=== PATIENT | female | born 1970 | race Caucasian/White ===

== ENCOUNTER → 2020-04-10 15:19 | Outpatient (CLI) | payer BC, SELFPAY ==
--- NOTE | ~2020-04-10 | US_ITS ---
EXAMINATION: US transvaginal DATE: 04/10/2020 15:43 INDICATION: Menorrhagia Comparison:No prior studies for comparison. TECHNIQUE: Multiple transabdominal and endovaginal sonographic images of the pelvis performed. FINDINGS: The uterus measures 8.5 x 5.1 x 5.9 cm. The endometrial complex measures 8 mm. The right ovary measures 3.5 x 2 x 2.7 cm and the left ovary measures 2.7 x 1.4 x 3 cm. There are sm all follicles in each ovary. There is no free fluid in the pelvis. There are no abnormal masses seen on either side. IMPRESSION: 1. Unremarkable pelvic ultrasound. Reviewed, dictated and finalized at location B.
== END ==
PROVIDERS: PCP Family Medicine Sports Medicine; Visit Provider Obstetrics & Gynecology Gynecology
DX: N92.0 Excessive and frequent menstruation with regular cycle (principal)
CPT/HCPCS: 76830

== ENCOUNTER → 2020-05-04 17:53 | Outpatient (CLI) | payer BC, SELFPAY ==
--- NOTE | ~2020-05-04 | MM_ITS ---
EXAMINATION: MM screening contra [facility] BI w nehemias HISTORY: Screening mammogram TECHNIQUE: Craniocaudal and mediolateral oblique 3-D tomosynthesis images were obtained and synthetic 2-D images were generated. CAD analysis was submitted and interpreted. COMPARISON: 12/25/2018, 12/23/2017, 12/09/2016, 07/08/2008 BREAST PARENCHYMAL COMPOSITION: The breasts are heterogeneously dense, which may obscure small masses . FINDINGS: There is no evidence of suspicious mass, calcification, or architectural distortion to sugg est malignancy in either breast. There has been no suspicious interval change. IMPRESSION: 1. No mammographic evidence of malignancy. 2. Recommend routine screening mammography in one year. BI-RADS Category 1: Negative Reviewed, dictated and finalized at location A. UP MAN
== END ==
PROVIDERS: PCP Family Medicine Sports Medicine; Visit Provider Nurse Practitioner
DX: Z12.31 Encounter for screening mammogram for malignant neoplasm of breast (principal)
CPT/HCPCS: 77063; 77067

== ENCOUNTER 2020-06-16 10:44 | Emergency (ER) | payer BC, SELFPAY ==
[2020-06-16 11:08] VITALS: BP 113/76; PULSE 120; RESP 14; TEMP 37; O2SAT 99
[2020-06-16] MEDS: methylPREDNISolone SOD SUCC 125 MG VIAL IV PUSH (12:13)
[2020-06-16] MEDS: diphenhydrAMINE HCl INJ 50 MG/ML VIAL IV PUSH (12:14)
[2020-06-16] MEDS: EPINEPHrine HCL INJ 1 MG/ML AMPUL 0.3 MG IM (12:14)
--- NOTE | 2020-06-16 12:28 | ED.ALLEREA ---
HPI - Allergic Reaction General Chief complaint: Allergic Reaction Stated complaint: hives, facial swelling Time Seen by Provider: 06/16/20 11:41 Source: patient Mode of arrival: ambulatory Limitations: no limitations History of Present Illness HPI narrative: This patient is a 50 year old female who presents for evaluation of hives. She states she developed hives after taking 1 pill of pyridum on Friday. Yesterday morning at 3 am she developed itching and later she developed hives. She has been taking benadryl pills every 6 hours . This is helping her itching but she has a rash to face, arms , body and legs. She denies chest pain, sob or throat itching. She is not aware of any allergies previously. She finished antibiotics a few days before her hives started. Related Data Home Medications Medication Instructions Recorded Confirmed alprazolam 06/12/19 terbinafine HCl mg 06/12/19 Allergies Allergy/AdvReac Type Severity Reaction Status Date / Time No Known Allergies Allergy Unverified 06/12/19 14:44 Review of Systems Review of Systems: All systems reviewed & are unremarkable except as noted in HPI and below PMFSH Past Medical History Medical History (Updated 06/16/20 @ 13:18 by Amanda Tucker MD) Anxiety Toenail fungus Social History Social History Smoking status: Never smoker Exam Const: General: no acute distress and alert Orientation/consciousness: patient oriented x3 Eyes: Pupils: Equal, round and reactive pupils present EOM: EOMs intact bilaterally Resp: Effort & Inspection: normal respiratory effort and no retractions Auscultation: clear to auscultation bilaterally Cardio: Rate: regular rate Rhythm: regular rhythm Heart sounds: no murmurs Skin: Rashes: rashes noted (urticaria periorbital, arms, legs, feet) Neuro: General: patient oriented x3 and moves all extremities Course Reevaluation(s) Reevaluation #1: PAtient's rash has almost completely resolved. Patient is tearful due to a family remember recently dying. I discussed discharge plan . she denies any additional questions or concerns. Date: 06/16/20 Time: 13:15 Vital Signs Vital signs: Vital Signs Temperature 98.6 F 06/16/20 11:08 Pulse Rate 120 H 06/16/20 11:08 Respiratory Rate 14 06/16/20 11:08 Blood Pressure 113/76 06/16/20 11:08 Pulse Oximetry 99 06/16/20 11:08 Temperature 98.6 F 06/16/20 11:08 Pulse Rate 120 H 06/16/20 11:08 Respiratory Rate 14 06/16/20 11:08 Blood Pressure 113/76 06/16/20 11:08 Pulse Oximetry 99 06/16/20 11:08 Discharge Plan Discharge Clinical Impression: Urticaria Patient Disposition: Home, Self-Care Condition: Stable Instructions: Urticaria (ED), Acute Rash (ED) Additional Instructions: Today you were evaluated for rash likely due to a medication. Take steroids, pepcid and antihistamines. REturn if you develop difficulty breathing, chest pain, lip swelling. You can continue to take benadryl or something like zyrtec. Call your primary care provider on Friday if you have no resolution. Prescriptions: New prednisone 10 mg Tablets,Dose Pack See Taper mg PO DAILY 12 Days Qty: 42 RF: 0 famotidine [Pepcid] 20 mg tablet 20 mg PO BID Qty: 14 RF: 0 No Action terbinafine HCl 250 mg tablet RF: 0 alprazolam 0.25 mg tablet RF: 0 sulfamethoxazole-trimethoprim [Bactrim DS] 800-160 mg tablet 1 tablet PO BID 3 Days Qty: 6 RF: 0 Follow-up/Referrals: Martir,Sancho Waterman MD [Primary Care Provider] -
== END 2020-06-16 13:33 | disposition home or self-care (01) ==
PROVIDERS: Emergency Provider General Practice; PCP Family Medicine Sports Medicine
DX: L50.9 Urticaria, unspecified (principal); F41.9 Anxiety disorder, unspecified
CPT/HCPCS: 96372; 96374; 96375; 99284; J0171; J1200; J2930

== ENCOUNTER → 2021-06-26 13:23 | Outpatient (CLI) | payer BC, SELFPAY ==
--- NOTE | ~2021-06-26 | MM_ITS ---
EXAMINATION: MM screening [facility] BI w nehemias HISTORY: Screening mammogram TECHNIQUE: Craniocaudal and mediolateral oblique 3-D tomosynthesis images were obtained and synthetic 2-D images were generated. CAD analysis was submitted and interpreted. COMPARISON: 05/04/2020, 12/25/2018, 12/23/2017 BREAST PARENCHYMAL COMPOSITION: The breasts are heterogeneously dense, which may obscure small masses . FINDINGS: There is no evidence of suspicious mass, calcification, or architectural distortion to sugg est malignancy in either breast. There has been no suspicious interval change. IMPRESSION: 1. No mammographic evidence of malignancy. 2. Recommend routine screening mammography in one year. BI-RADS Category 1: Negative Reviewed, dictated and finalized at location A. ORATE ASSOCIATE
== END ==
PROVIDERS: PCP Family Medicine Sports Medicine; Visit Provider Obstetrics & Gynecology Gynecology
DX: Z12.31 Encounter for screening mammogram for malignant neoplasm of breast (principal)
CPT/HCPCS: 77063; 77067

== ENCOUNTER → 2022-07-30 16:06 | Outpatient (CLI) | payer OTHER, SELFPAY ==
--- NOTE | ~2022-07-30 | MM_ITS ---
EXAMINATION: MM screening [facility] BI w nehemias HISTORY: Screening mammogram TECHNIQUE: Craniocaudal and mediolateral oblique 3-D tomosynthesis images were obtained and synthetic 2-D images were generated. CAD analysis was submitted and interpreted. COMPARISON: 06/2021, 05/04/2020, 12/25/2018 bilateral screening mammogram examinations BREAST PARENCHYMAL COMPOSITION: The breasts are heterogeneously dense, which may obscure small masses . FINDINGS: There is no evidence of suspicious mass, calcification, or architectural distortion to sugg est malignancy in either breast. There has been no suspicious interval change. IMPRESSION: 1. No mammographic evidence of malignancy. 2. Recommend routine screening mammography in one year. BI-RADS Category 1: Negative Reviewed, dictated and finalized at location A. O FLOATER
== END ==
PROVIDERS: PCP Family Medicine Sports Medicine; Visit Provider Nurse Practitioner
DX: Z12.31 Encounter for screening mammogram for malignant neoplasm of breast (principal)
CPT/HCPCS: 77063; 77067

== ENCOUNTER 2023-06-01 10:39 | Emergency (ER) | payer OTHER, SELFPAY ==
--- NOTE | 2023-06-01 10:43 | ED.GENADULT ---
HPI - General Adult General Stated complaint: sorethroat Time Seen by Provider: 06/01/23 10:43 Source: patient Mode of arrival: ambulatory Limitations: no limitations History of Present Illness HPI narrative: 53-year-old female patient presents to the [facility] with complaints of a sore throat that started about 2 days ago. 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 Patient states she has been taking Tylenol and ibuprofen for the pain. Unsure she has been having any fevers but last night she did have some chills. Patient states slight congestion denies any coughing, nausea, vomiting or diarrhea. Denies any headaches. Related Data Home Medications Medication Instructions Recorded Confirmed alprazolam 0.25 mg tablet 06/12/19 terbinafine HCl 250 mg tablet mg 06/12/19 Allergies Allergy/AdvReac Type Severity Reaction Status Date / Time No Known Allergies Allergy Unverified 06/12/19 14:44 Review of Systems Review of Systems: CONSTITUTIONAL: Denies fever, Positive chills, denies sweats. EYES: Denies visual changes, redness, or discharge. ENT: positive rhinorrhea, congestion, positive sore throat, denies otalgia. CARDIOVASCULAR: Denies chest pain, palpitations, or edema. RESPIRATORY: Denies cough or dyspnea. GASTROINTESTINAL: Denies abdominal pain, nausea, vomiting, or diarrhea. GENITOURINARY: Denies dysuria or hematuria. SKIN: Denies rash or itching. MUSCULOSKELETAL: Denies back pain, joint pain, or myalgia. NEUROLOGIC: Denies headache, numbness, or weakness. PSYCHIATRIC: Denies anxiety or depression. PMFSH Past Medical History Medical History (Updated 06/01/23 @ 11:23 by MAG Jaeger) Anxiety Toenail fungus Social History Social History Smoking status: Never smoker Comments At the time of my signature I agree with nursing past medical history, surgical, social, and family history. There is no relevant family history pertinent to the presenting complaint. Exam Narrative: GENERAL: Well-appearing, well-nourished, and in no acute distress. HEAD: Normocephalic, atraumatic. EYES: PERRLA and EOMI. ENT: Nares with erythema edema noted bilaterally, no rhinorrhea or epistaxis. Mucous membranes moist. posterior pharynx with erythema, 1+ tonsillar enlargement. no erythema or foreign bodies the canal to bilateral TMs. NECK: Supple. No lymphadenopathy CHEST: Clear to auscultation. No respiratory distress. HEART: Regular rate and rhythm. No murmur heard. Normal peripheral pulses. ABDOMEN: Soft, nontender, nondistended, normal active bowel sounds. EXTREMITIES: Normal range of motion. No edema. SKIN: Warm, dry, no rash. NEURO: No focal deficits. Alert and oriented x3. Course Course Level of Care: Express Care Visit Vital Signs Vital signs: Vital Signs Temperature 36.5 C 06/01/23 10:52 Pulse Rate 92 06/01/23 10:52 Respiratory Rate 18 06/01/23 10:52 Blood Pressure 116/67 06/01/23 10:52 Pulse Oximetry 100 06/01/23 10:52 Oxygen Delivery Room Air 06/01/23 10:52 Temperature 36.5 C 06/01/23 10:52 Pulse Rate 92 06/01/23 10:52 Respiratory Rate 18 06/01/23 10:52 Blood Pressure 116/67 06/01/23 10:52 Pulse Oximetry 100 06/01/23 10:52 Oxygen Delivery Room Air 06/01/23 10:52 Vital signs reviewed Medical Decision Making MDM Narrative Medical decision making narrative: Plan of care for patient is to swab her today for strep. I will reassess her once this has resulted Differential Diagnosis Differential Diagnosis: differential diagnosis: Viral pharyngitis, pharyngitis, group A strep, infectious mononucleosis, gonococcal pharyngitis, exudative pharyngitis, oral candidiasis. Chronic allergies, postnasal drip, GERD, abscess formation, but glottitis, retropharyngeal abscess formation, or airway obstruction. Vital Signs Vital Signs: Vital S
[2023-06-01 10:52] VITALS: BP 116/67; PULSE 92; RESP 18; TEMP 36.5; O2SAT 100
== END 2023-06-01 11:30 | disposition home or self-care (01) ==
PROVIDERS: Emergency Provider Nurse Practitioner Family; PCP Family Medicine Sports Medicine
DX: J02.0 Streptococcal pharyngitis (principal); F41.9 Anxiety disorder, unspecified
CPT/HCPCS: 87880; 99213; G0463

== ENCOUNTER 2023-09-24 16:15 | Outpatient (CLI) | payer OTHER, SELFPAY ==
--- NOTE | ~2023-09-24 | MM_ITS ---
EXAMINATION: MM screening [facility] BI w nehemias HISTORY: Screening TECHNIQUE: Craniocaudal and mediolateral oblique 3-D tomosynthesis images were obtained and synthetic 2-D images were generated. CAD analysis was submitted and interpreted. COMPARISON: Comparison to multiple prior studies sequentially, with oldest reviewed study dated 09/2021. BREAST PARENCHYMAL COMPOSITION: Not dense: There are scattered areas of fibroglandular density. FINDINGS: There are developing bilateral breast asymmetries centered in the upper outer quadrant of b oth breasts. IMPRESSION: 1. Developing bilateral breast asymmetries. 2. Additional mammographic views and possible breast ultrasound are recommended. BI-RADS Category 0: Incomplete: Needs additional imaging evaluation. Reviewed, dictated and finalized at location A. IMPRESSION: 1. Developing bilateral breast asymmetries. 2. Additional mammographic views and possible breast ultrasound are recommended . BI-RADS Category 0: Incomplete: Needs additional imaging evaluation.
== END 2023-09-24 16:16 ==
LOC: MICIMG 16:16
PROVIDERS: PCP Nurse Practitioner; Visit Provider Nurse Practitioner
DX: Z12.31 Encounter for screening mammogram for malignant neoplasm of breast (principal); R92.8 Other abnormal and inconclusive findings on diagnostic imaging of breast
CPT/HCPCS: 77063; 77067

== ENCOUNTER 2023-11-03 14:06 | Outpatient (CLI) | payer OTHER, SELFPAY ==
--- NOTE | ~2023-11-03 | MMUS_ITS ---
EXAMINATION: MM diagnostic [facility] BI w nehemias, US breast BI limited HISTORY: Developing bilateral mammographic asymmetry is reported in the upper outer quadrant of each breast on September 24, 2023 screening mammogram TECHNIQUE: Additional 3-D tomosynthesis images of both breasts were performed and synthetic 2-D image s were generated. CAD analysis was submitted and interpreted. High resolution bilateral upper outer q uadrant breast ultrasound was performed. COMPARISON: September 24, 2023, July 30, 2022, June 26, 2021 by lateral screening mammogram examinati ons FINDINGS: MAMMOGRAPHIC FINDINGS: 3.8 x 6 mm low density circumscribed opacity with suggestion of a radiolucent hilus is noted in the u pper outer right breast, likely a benign lymph node. This is present on prior examinations. No suspicious mass, architectural distortion, malignant calcification, skin thickening or retraction is detected in the upper outer quadrant of .either breast. ULTRASOUND: No suspicious solid mass or suspicious shadowing of either breast is detected. Right breast: 11:00 7 cm from nipple: 2.6 x 6.1 mm benign-appearing lymph node. 11:00 5 cm from nipple: 3 x 6 mm benign-appearing lymph node Right breast: 12:00 4 cm from nipple: 4.6 x 5.8 x 5.4 mm circumscribed hypoechoic lesion with through transmission posterior enhancement, no internal vascularity, likely a benign cyst 2:00 4 cm from nipple: Similar 2.7 x 2.9 x 3.5 mm circumscribed sonolucency with through transmission , no internal vascularity, likely benign IMPRESSION: 1. Benign findings 2. Routine annual mammographic screening is recommended BI-RADS Category 2: Benign finding(s). Reviewed, dictated and finalized at location A. IMPRESSION: 1. Benign findings 2. Routine annual mammographic screening is recommended BI-RADS Category 2: Benign finding(s).
== END 2023-11-03 14:07 ==
LOC: MICIMG 14:09
PROVIDERS: PCP Obstetrics & Gynecology Gynecology; Visit Provider Obstetrics & Gynecology Gynecology
DX: R92.8 Other abnormal and inconclusive findings on diagnostic imaging of breast (principal)
CPT/HCPCS: 76642; 77062; 77066; G0279

== ENCOUNTER 2024-04-18 09:25 | Emergency (ER) | payer OTHER, SELFPAY ==
--- NOTE | ~2024-04-18 | XR_ITS ---
EXAMINATION: XR chest 2V DATE: 04/18/2024 10:01 INDICATION: Cough. Chest congestion. TECHNIQUE: Frontal and lateral views of the chest were obtained. COMPARISON: None. FINDINGS: There is no pneumonia, pleural effusion, or pneumothorax. The heart size is normal. IMPRESSION: 1. No acute cardiopulmonary disease. Reviewed, dictated and finalized at location A.
[2024-04-18 09:33] VITALS: BP 128/72; PULSE 82; RESP 18; TEMP 36.3; O2SAT 100
[2024-04-18 09:36] VITALS: BP 128/72; PULSE 82; RESP 18; TEMP 36.3; O2SAT 100
--- NOTE | 2024-04-18 09:44 | ED_ITS ---
HPI - URI/Sore Throat General Chief Complaint: Upper Respiratory Infection Stated Complaint: sinus pressure Time Seen by Provider: 04/18/24 09:44 Source: patient Mode of arrival: ambulatory Limitations: no limitations History of Present Illness HPI Narrative: 54 yo F presents with cough, nasal congestion, fatigue for 4 days. Afebrile. Symptoms started with hoarse voice. No sore throat. Denies CP/SOB. pt teaches p reschool. Has had pneumonia exposure. All systems reviewed and negative except as noted above. Related Data Allergies Allergy/AdvReac Type Severity Reaction Status Date / Time nitrofurantoin Allergy Rash Verified 04/18/24 09:36 [From Macrobid] phenazopyridine Allergy Rash Verified 04/18/24 09:36 [From Pyridium] Review of Systems Review of Systems: CONSTITUTIONAL: Denies fever, chills, or sweats. reports fatigue. EYES: Denies visual changes, redness, or discharge. ENT: Reports rhinorrhea, congestion. Denies sore throat, or otalgia. CARDIOVASCULAR: Denies chest pain, palpitations, or edema. RESPIRATORY: reports cough. Denies dyspnea. GASTROINTESTINAL: Denies abdominal pain, nausea, vomiting, or diarrhea. GENITOURINARY: Denies dysuria or hematuria. SKIN: Denies rash or itching. MUSCULOSKELETAL: Denies back pain, joint pain, or myalgia. NEUROLOGIC: Denies headache, numbness, or weakness. PSYCHIATRIC: Denies anxiety or depression. All other systems reviewed are negative, except as documented in HPI. [facility] Past Medical History Medical History (Updated 04/18/24 @ 10:26 by Alejandrina Toussaint NP) Anxiety Toenail fungus Social History Social History Smoking status: Never smoker Comments At time of signature, agree with nursing past medical, surgical, social and family history. There is no relevant family history pertinent to the presenting complaint. Exam Narrative: GENERAL: This is a well-nourished, well-developed patient, in no apparent distress. HEAD: normocephalic, atraumatic. EYES: PERRL. Sclera clear/white. Vision is grossly intact. EARS: External ears normal, auditory canals clear and without drainage, TMs normal without perforation. Hearing grossly intact. NOSE: External nose normal with Clear nasal drainage, mild congestion THROAT: Mucous membranes moist, clear postnasal drainage without erythema swelling or exudates NECK: Neck supple, non-tender without lymphadenopathy, masses or thyromegaly. CARDIOVASCULAR: Regular rate and rhythm without murmurs, gallops, or rubs. RESPIRATORY: Clear to auscultation. Breath sounds equal bilaterally. No wheezes, rales, or rhonchi. SKIN: warm, Dry, intact with no suspicious lesions or rash, good texture and turgor. NEURO: awake, alert, and oriented to person, place and time. There were no obvious focal neurologic abnormalities. EXTREMITIES: No joint tenderness, effusion, or edema noted. Course Course Level of Care: Express Care Visit Vital Signs Vital signs: Vital Signs Temperature 36.3 C L 04/18/24 09:33 Pulse Rate 82 04/18/24 09:33 Respiratory Rate 18 04/18/24 09:33 Blood Pressure 128/72 04/18/24 09:33 Pulse Oximetry 100 04/18/24 09:33 Oxygen Delivery Room Air 04/18/24 09:33 Temperature 36.3 C L 04/18/24 09:36 Pulse Rate 82 04/18/24 09:36 Respiratory Rate 18 04/18/24 09:36 Blood Pressure 128/72 04/18/24 09:36 Pulse Oximetry 100 04/18/24 09:36 Oxygen Delivery Room Air 04/18/24 09:36 reviewed MDM - URI/Sore Throat MDM Narrative Medical decision making narrative: lungs clear to auscultation. pt would like chest xr to rule out pneumonia. x-ray was normal. discussed with pt. recommend she continue OTC meds to treat symptoms. Patient is aware of diagnosis, understands and agrees to treatment plan. Anticipatory guidance given. Patient agrees to follow-up as directed and is aware of reasons to seek care at the emergency department. Portions of this record may have been created with voice recognition software Differential Diagnosis Differential diagnosis: Likely upper respiratory infection, sinusitis, viral infection and influenza Imaging Data My impression: Agree with radiologist Radiologist's impression: EXAMINATION: XR chest 2V DATE: 04/18/2024 10:01 INDICATION: Cough. Chest congestion. TECHNIQUE: Frontal and lateral views of the chest were obtained. COMPARISON: None. FINDINGS: There is no pneumonia, pleural effusion, or pneumothorax. The heart size is normal. IMPRESSION: 1. No acute cardiopulmonary disease. Discharge Plan Discharge Clinical Impression: Viral upper respiratory tract infection with cough Patient Disposition: Home, Self-Care Condition: Stable Instructions: Upper Respiratory Infection (ED) Additional Instructions: your COVID test was negative today. Your chest x-ray was normal. Your symptoms are viral and may last 7-10 days. Taking [id number] medication to treat her symptoms such as DayQuil NyQuil cold and Sinus. Use an [id number] nasal spray such as Flonase or Nasacort as directed on packaging. Drink at least 64 oz of water a day. Place cool mist humidifier in bedroom where you sleep. Drink hot tea with honey to soothe throat and treat cough. Follow-up with your primary care physician if symptoms are not improving. Prescriptions: New benzonatate 200 mg capsule 200 mg PO TID PRN (Reason: cough) Qty: 20 0RF Follow-up/Referrals: Eliana,Ibrahima Waterman MD [Primary Care Provider] - Stand Alone Forms: Work/School Release IP Time of Disposition: 10:27
[2024-04-18 10:25] LABS: EDCOVIDSCREEN Negative (Negative)
== END 2024-04-18 10:31 | disposition home or self-care (01) ==
PROVIDERS: Emergency Provider Nurse Practitioner Family; PCP Family Medicine
DX: J06.9 Acute upper respiratory infection, unspecified (principal); R05.9 Cough, unspecified; Z20.822 Contact with and (suspected) exposure to COVID-19
CPT/HCPCS: 71046; 87426; 99213; G0463

== ENCOUNTER 2024-10-13 15:53 | Outpatient (CLI) | payer OTHER, SELFPAY ==
--- NOTE | ~2024-10-13 | MM_ITS ---
EXAMINATION: MM screening [facility] BI w nehemias HISTORY: Screening TECHNIQUE: Craniocaudal and mediolateral oblique 3-D tomosynthesis images were obtained and synthetic 2-D images were generated. CAD analysis was submitted and interpreted. COMPARISON: Comparison to multiple prior studies sequentially, with oldest reviewed study dated 10/2018. BREAST PARENCHYMAL COMPOSITION: Not dense: There are scattered areas of fibroglandular density. FINDINGS: There is no evidence of suspicious mass, calcification, or architectural distortion to sugg est malignancy in either breast. There has been no suspicious interval change. IMPRESSION: 1. No mammographic evidence of malignancy. 2. Recommend routine screening mammography in one year. BI-RADS Category 1: Negative Reviewed, dictated and finalized at location A.
== END 2024-10-13 15:54 | disposition home or self-care (01) ==
LOC: MICIMG 15:53
PROVIDERS: PCP Family Medicine; Visit Provider Obstetrics & Gynecology Gynecology
DX: Z12.31 Encounter for screening mammogram for malignant neoplasm of breast (principal)
CPT/HCPCS: 77063; 77067